=== PATIENT | female | born 1950 | race Caucasian/White ===

== ENCOUNTER 2016-06-01 07:15 | Day surgery (SDC) | payer MEDICARE, OTHER ==
[~2016-06-01 07:15] MED LIST: ALPR0.25 PO; AMI200T PO; DABI150C PO; ESZO3TAB53 PO; FAMC500T PO; FURO20TA3 PO; MAGNTAB16 OR; POTA10IN PO; SIMV-8 PO
[2016-06-01] MEDS ORDERED: fentaNYL CITRATE 100 MCG/2 ML VL IV ONE (07:45)
[2016-06-01] MEDS ORDERED: LIDOCAINE VISCOUS 2% 15ML UD PO ONE (07:45)
[2016-06-01] MEDS ORDERED: BENZOCAINE (DENTAL) 20 % SPRAY 60ML MT ONE (07:45)
[2016-06-01] MEDS ORDERED: MIDAZOLAM HCL 5 MG/ML-1ML VIAL IV ONE (07:45)
[2016-06-01] MEDS ORDERED: MIDAZOLAM HCL 1MG/1ML-2 ML VIAL ONE (08:27)
[2016-06-01] MEDS ORDERED: fentaNYL CITRATE 100 MCG/2 ML VL ONE (08:28)
[2016-06-01] MEDS ORDERED: FLUMAZENIL 0.1 MG/ML INJ 10ML MDV IV ONE (08:29)
[2016-06-01] MEDS ORDERED: NALOXONE HCL 0.4 MG/ML VIAL ONE (08:30)
[2016-06-01] MEDS ORDERED: LIDOCAINE VISCOUS 2% 15ML UD ONE (08:31)
[2016-06-01] MEDS ORDERED: diphenhdrAMINE HCL 50 MG/1 ML VL ONE (09:08)
[2016-06-01] MEDS ORDERED: AMIODARONE HCL 300 MG in D5W 5% 100 ML IV ONE (09:30)
== END 2016-06-01 13:10 | disposition home or self-care (01) ==
LOC: CATH 07:15
PROVIDERS: ATTEND Specialist
DX: I48.91 Unspecified atrial fibrillation (principal); R00.2 Palpitations; E78.00 Pure hypercholesterolemia, unspecified; J40 Bronchitis, not specified as acute or chronic
CPT/HCPCS: 92960; 93312; J0282; J1200; J2250; J3010; J7030; J7060